=== PATIENT | male | born 1990 | race African-American/Black ===

== ENCOUNTER 2021-07-22 02:54 | Emergency (ER) | payer SELFPAY ==
[~2021-07-22] VITALS: Ht 182.8 cm; Wt 85.3 kg
[~2021-07-22 02:54] MED LIST: NORCO 325 MG-51 TAB PO; PEN-VK500 MG PO; PERIDEX 480 ML480 ML PO; ULTRAM50 MG PO
[2021-07-22 03:30] LABS: BASO % 0.2 % (0.0-1.0); EOS % 0.5 % (1.0-4.0); HEMATOCRIT 43.5 % (42.0-52.0); LYMPH # 1.7 10*3/uL (1.3-4.4); LYMPH % 37.8 % (27.0-41.0); MEAN CORPUSCULAR HGB 29.2 pg (27.0-31.0); MEAN CORPUSCULAR HGB CONC 32.9 g/dl (33.0-37.0); MONO # 0.5 10*3/uL (0.1-1.0); MONO % 10.4 % (3.0-9.0); NEUT # 2.3 10*3/uL (2.3-7.9); NEUT % 51.1 % (47.0-73.0); PLATELET COUNT AUTOMATED 236 10*3/uL (130-400); RED BLOOD COUNT 4.89 10*6/uL (4.50-5.90); RED CELL DISTRI WIDTH 12.6 % (0-14.5); WHITE BLOOD COUNT 4.4 10*3/uL (4.8-10.8)
[2021-07-22 04:00] LABS: BILIRUBIN Negative (Negative); BLOOD Negative (Negative); CLARITY Clear (Clear); COLOR Yellow (Yellow); GLUCOSE Negative (Negative); KETONE 1+ (Negative); LEUKO ESTERASE Negative (Negative); NITRITE Negative (Negative); PH 6.5 (4.5-8.0); SPECIFIC GRAVITY 1.025 (1.001-1.030)
[2021-07-22 04:10] LABS: RBC 0-2 rbc/hpf (0-2); WBC 0-2 wbc/hpf (0-5)
[2021-07-22 04:12] LABS: URINE AMPHETAMINES > 1000 (1000ng/ml); URINE BARBITURATES < 200 (200ng/ml); URINE BENZODIAZEPINES < 200 (200ng/ml); URINE COCAINE < 300 (300ng/ml); URINE OPIATES < 300 (300ng/ml)
[2021-07-22 04:18] LABS: URINE CANNABINOIDS (THC) > 50 (50ng/ml); URINE METHADONE < 300 (300ng/ml); URINE PHENCYCLIDINE < 25 (25ng/ml)
[2021-07-22 04:23] LABS: BUN 11 mg/dl (7-24); POTASSIUM 3.4 mmol/L (3.5-5.1); SODIUM 137 mmol/L (136-145)
[2021-07-22 04:24] LABS: ALBUMIN 4.2 gm/dl (3.1-4.5); ALKALINE PHOSPHATASE 78 U/L (45-117); CHLORIDE 103 mmol/L (98-107); CPK 295 U/L (39-308); ETHYL ALCOHOL < 3.0 mg/dl (<3); SGOT/AST 22 IU/L (3-35); SGPT/ALT 23 U/L (12-78); TOTAL PROTEIN 8.2 gm/dL (6.4-8.2)
== END 2021-07-22 14:04 | disposition home or self-care (01) ==
LOC: ED 02:54
PROVIDERS: Internal Medicine
DX: U07.1 COVID-19 (principal); F15.10 Other stimulant abuse, uncomplicated

== ENCOUNTER → 2021-08-28 | Outpatient (CLI) | payer OTHER | END | disposition home or self-care (01) | LOC: COVID19 15:01 | PROVIDERS: ATTEND Internal Medicine | DX: U07.1 COVID-19 (principal) ==